=== PATIENT | female | born 1955 | race American Indian/Alaskan Native ===

== ENCOUNTER 2018-01-03 12:37 | Outpatient (CLI) | payer BC ==
--- NOTE | 2018-01-03 19:51 | XRay Report ---
FINAL REPORT PROCEDURE: XR ANKLE BILAT 3+V TECHNIQUE: Bilateral ankle radiographs, AP, lateral, and oblique views. CPT 89411 HISTORY: Bilateral ankle pain. COMPARISON: Bilateral foot radiographs dated same day and time. FINDINGS: Right Fracture (s) and/or Dislocation(s): Well corticated density about the medial malleolus Alignment: Normal . Joint space(s): Mild narrowing of the tibiotalar joint. Mild narrowing at the talonavicular joint. Soft tissues: Mild indistinctness of the soft tissues overlying the ankle. Bone mineralization: Mild osteopenia. Foreign bodies: None . Calcaneal spurring: Plantar spur. Left Fracture (s) and/or Dislocation(s): Slight irregularity about the medial malleolus. Alignment: Normal . Joint space(s): Narrowing and osteophytes at the tibiotalar and talonavicular joints. Soft tissues: Mild indistinctness of the soft tissues overlying the ankle. Bone mineralization: Mild osteopenia. Foreign bodies: None . Calcaneal spurring: Plantar spur. IMPRESSION: Mild degenerative changes of the bilateral ankles. Well corticated density and slight irregularity about the medial malleolus, particularly on the right most likely related to chronic degenerative and/or posttraumatic change. Consider attention on followup radiographs if there is concern for subtle superimposed acute injury. Mild indistinctness of the soft tissues overlying the bilateral ankles, consider mild bilateral edema.
--- NOTE | 2018-01-03 23:30 | XRay Report ---
FINAL REPORT PROCEDURE: XR FOOT BILAT 3+V TECHNIQUE: Bilateral foot radiographs, AP, lateral, and oblique views. CPT 33287 HISTORY: Bilateral foot pain. COMPARISON: No prior studies are available for comparison. FINDINGS: Right Fracture (s) and/or Dislocation(s): None . Alignment: Mild hallux valgus of the 1st digit. Flexion of the 2nd-5th toes limits evaluation. Joint space(s): Mild narrowing and small subchondral cysts of the 1st metatarsophalangeal joint. Mild diffuse narrowing of the distal interphalangeal joints. Soft tissues: Normal . Bone mineralization: Osteopenia. Foreign bodies: None . Calcaneal spurring: Plantar spur. Left Fracture (s) and/or Dislocation(s): None . Alignment: Mild hallux valgus of the 1st digit. Slight flexion of the 3rd-5th toes. Joint space(s): Mild diffuse narrowing of the distal interphalangeal joints. Slight narrowing of the 1st metatarsal-phalangeal joint. Mild narrowing and small osteophytes of the tibiotalar and talonavicular joints. Soft tissues: Normal . Bone mineralization: Mild osteopenia. Foreign bodies: None . Calcaneal spurring: Plantar spur. IMPRESSION: Osteopenia and degenerative changes of the feet
== END 2018-01-03 12:38 | disposition home or self-care (01) ==
LOC: SPVIMAG 12:37
PROVIDERS: ATTEND Family Medicine Adult Medicine
DX: M19.071 Primary osteoarthritis, right ankle and foot (principal); M19.072 Primary osteoarthritis, left ankle and foot; M20.12 Hallux valgus (acquired), left foot; M20.11 Hallux valgus (acquired), right foot; M25.871 Other specified joint disorders, right ankle and foot; M85.871 Other specified disorders of bone density and structure, right ankle and foot; M85.872 Other specified disorders of bone density and structure, left ankle and foot